=== PATIENT | male | born 1955 | race Caucasian/White ===

== ENCOUNTER 2024-01-28 13:05 | Emergency (ER) | payer MEDICARE, BC ==
[2024-01-28 13:27] VITALS: TEMP 98
[2024-01-28] MEDS: KETOROLAC 15 MG/ML 1 ML VIAL IM STA (14:04)
--- NOTE | 2024-01-28 14:16 | XR ---
EXAMINATION TYPE: XR knee complete LT DATE OF EXAM: 01/28/2024 COMPARISON: None HISTORY: 68-year-old male pain after fall yesterday TECHNIQUE: AP, oblique, and lateral views FINDINGS: Tricompartmental degenerative spurring, greatest in the medial compartment. Mild anterior soft tissue swelling. Small knee joint effusion noted. No acute fracture, subluxation, dislocation. IMPRESSION: Tricompartmental osteoarthrosis with degenerative spurring. There is a small knee joint effusion whic h may be reactive. Mild anterior soft tissue swelling. No acute osseous abnormality seen. If concern for internal derangement, MRI can be performed.
--- NOTE | 2024-01-28 15:04 | ED ---
General Adult HPI - General Chief complaint: Extremity Injury, Lower Stated complaint: Fall-L leg injury Time Seen by Provider: 01/28/24 13:30 Source: patient, RN notes reviewed, old records reviewed Mode of arrival: ambulatory Limitations: no limitations - History of Present Illness Initial comments: Patient is a 68-year-old male who presents emergency department complaining of left knee pain. Fell yesterday. Tripped over some water bottles that were on the ground. Landed mostly on his right elbow which she states has an abrasion but no significant pain. But twisted his left knee in a strange motion. Is still able to bend and move the left knee however it is painful to walk and move. Endorses some edema. Denies any numbness or change in sensation. Denies any other acute complaints. Presents for further evaluation at this time. - Related Data Allergies Allergy/AdvReac Type Severity Reaction Status Date / Time No Known Allergies Allergy Verified 01/28/24 13:15 Review of Systems ROS Statement: Those systems with pertinent positive or pertinent negative responses have been documented in the HPI. Review of Systems: CONST: Denies fever EYES: Denies blurry vision ENT: Denies nasal congestion C/V: Denies Chest pain RESP: Denies shortness of breath GI: Denies abdominal pain : Denies dysuria SKIN: Denies rash. MSK: Endorses knee pain NEURO: Denies headache ROS Other: All systems not noted in ROS Statement are negative. Past Medical History Past Medical History: No Reported History Additional Past Medical History / Comment(s): knee issues History of Any Multi-Drug Resistant Organisms: None Reported Past Surgical History: No Surgical Hx Reported Past Psychological History: No Psychological Hx Reported Smoking Status: Never smoker Past Alcohol Use History: Rare Past Drug Use History: None Reported General Exam - General Exam Comments Initial Comments: General: Appears in no acute distress. HEAD: Normal with no signs of head trauma. EYES: EOMI. ENT: Hearing grossly intact. RESPIRATORY: No respiratory distress. C/V: Regular rate and rhythm. ABD: Abdomen is nondistended. EXT: Decreased range of motion of left knee secondary to pain. Able to hold in full extension. No obvious deformity. It is edematous surrounding the left knee. No obvious deformities. Decreased flexion secondary to pain. SKIN: No rashes or lesions observed on exposed skin. NEURO: Alert and oriented. Limitations: no limitations Course Vital Signs 01/28/24 01/28/24 13:12 15:28 Temperature 98.0 F Pulse Rate 94 80 Respiratory 17 16 Rate Blood Pressure 125/86 132/82 O2 Sat by Pulse 95 95 Oximetry Medical Decision Making - Medical Decision Making Was pt. sent in by a medical professional or institution (, OBED, COMPUTER HARDWARE TECHNICIAN, urgent care, hospital, or senior living...) When possible be specific @ -No Did you speak to anyone other than the patient for history (EMS, parent, family, police, friend...)? What history was obtained from this source @ -No Did you review nursing and triage notes (agree or disagree)? Why? @ -I reviewed and agree with nursing and triage notes Were old charts reviewed (outside hosp., previous admission, EMS record, old EKG, old radiological studies, urgent care reports/EKG's, senior living records)? Report findings @ -No old charts were reviewed Differential Diagnosis (chest pain, altered mental status, abdominal pain women, abdominal pain men, vaginal bleeding, weakness, fever, dyspnea, syncope, headache, dizziness, GI bleed, back pain, seizure, CVA, palpatations, mental health, musculoskeletal)? @ -Differential Musculoskeletal Muscular strain, contusion, ligament sprain, fracture, arthritis, septic arthritis, bursitis, cellulitis, muscle spasm, nerve compression, DVT, arterial occlusion, herpes zoster, electrolyte abnormality, tumor.... This is not meant to be in all inclusive list EKG interpreted by me (3pts min.). @ -None done X-rays interpreted by me (1pt min.). @ -X-ray reveals soft tissue edema of the left knee but no other obvious finding. No obvious acute traumatic injury. Significant arthritis present. CT interpreted by me (1pt min.). @ -None done U/S interpreted by me (1pt. min.). @ -None done What testing was considered but not performed or refused? (CT, X-rays, U/S, labs)? Why? @ -None What meds were considered but not given or refused? Why? @ -None Did you discuss the management of the patient with other professionals (professionals i.e. , OBED, COMPUTER HARDWARE TECHNICIAN, lab, RT, psych nurse, social science analyst, coach, teacher, senior administrative services officer, family service caseworker)? Give summary @ -No Was smoking cessation discussed for >3mins.? @ -No Was critical care preformed (if so, how long)? @ -No Were there social determinants of health that impacted care today? How? (Homelessness, low income, unemployed, alcoholism, drug addiction, transportation, low edu. Level, literacy, decrease access to med. care, alf, rehab)? @ -No Was there de-escalation of care discussed even if they declined (Discuss DNR or withdrawal of care, Hospice)? DNR status @ -No What co-morbidities impacted this encounter? (DM, HTN, Smoking, COPD, CAD, Cancer, CVA, ARF, Chemo, Hep., AIDS, mental health diagnosis, sleep apnea, morbid obesity)? @ -None Was patient admitted / discharged? Hospital course, mention meds given and route, prescriptions, significant lab abnormalities, going to OR and other pertinent info. @ -Patient presented further traumatic left knee pain from yesterday. X-rays will be obtained. Patient administered IM Toradol for pain as well as an ice pack. X-ray revealed no obvious traumatic injury but some soft tissue swelling and edema which could be indicative of internal derangement of the knee. Vital signs within acceptable limits. Exam relatively unremarkable. We will apply a knee immobilizer and patient will be given crutches. He will be given a starter pack of Tylenol 3's for home and instructions to follow-up with orthopedic surgery. I discussed the results of the x-ray with the patient and recommended that he follow-up if pain persist. Recommended elevation, icing the knee. Discussed strict return precautions. Informed him he may need other imaging such as MRI which cannot be done out of the ER. He was in agreement this plan. I instructed the patient to follow up with their PCP in the next 1-3 days. I explained that the patient should return to the emergency department if they experience any worsening symptoms. Strict return precautions were discussed with the patient. The patient expressed understanding of these instructions. I ans wered all questions that the patient had. The patient was discharged home in fair condition with their prescriptions and follow up information. Undiagnosed new problem with uncertain prognosis? @ -No Drug Therapy requiring intensive monitoring for toxicity (Heparin, Nitro, Insulin, Cardizem)? @ -No Were any procedures done? @ -No Diagnosis/symptom? @ -Left knee sprain, left knee pain Acute, or Chronic, or Acute on Chronic? @ -Acute Uncomplicated (without systemic symptoms) or Complicated (systemic symptoms)? @ -Uncomplicated Side effects of treatment? @ -No Exacerbation, Progression, or Severe Exacerbation? @ -No Poses a threat to life or bodily function? How? (Chest pain, [place], [place], pneumonia, PE, COPD, DKA, ARF, appy, cholecystitis, CVA, Diverticulitis, Homicidal, Suicidal, threat to staff... and all critical care pts) @ -No Disposition Clinical Impression: Left knee sprain Disposition: HOME SELF-CARE Condition: Fair Instructions (If sedation given, give patient instructions): Knee Sprain (ED), Knee Pain (ED) Is patient prescribed a controlled substance at d/c from ED?: No Referrals: None,Stated [Primary Care Provider] - 1-2 days Torri Galo DO [Doctor of Osteopathic Medicine] - 1-2 days Forms: Area PCPs Time of Disposition: 15:00
[2024-01-28] MEDS: ACET/COD 300 MG/30 MG STARTER PACK 6 TAB BTL PO STA (15:20)
[2024-01-28 15:30] VITALS: BP 132/82; PULSE 80; RESP 16
== END 2024-01-28 15:31 | disposition home or self-care (01) ==
LOC: EC 13:05
DX: S83.92XA Sprain of unspecified site of left knee, initial encounter (principal); W01.0XXA Fall on same level from slipping, tripping and stumbling without subsequent striking against object, initial encounter; X50.1XXA Overexertion from prolonged static or awkward postures, initial encounter
CPT/HCPCS: 73562; 99283; 96372; L1830; J1885